=== PATIENT | female | born 1935 | race Caucasian/White ===

== ENCOUNTER 2016-05-22 06:48 | Day surgery (SDC) | payer BC ==
--- NOTE | ~2016-05-22 | EGD ---
EGD REPORT [facility] [address] [address] NAME: SAGRARIO MORENO : 39 STATUS : REG [facility]#: [id number] AGE: 81 ADM/REG DATE : 05/22/16 MR#: [id number] REPORT SERV DATE: 05/22/16 DICTATED BY: SHAHBAZ CHRISTOPHER DATE: 05/22/16 REPORT STATUS : Draft TRANSCRIBED BY: [facility] DATE: 05/22/16 Endoscopy Center Patient Name: Sagarrio Moreno Date of : 1935 Attending MD: SHAHBAZ CHRISTOPHER MD Procedure Date No Time: 05/22/2016 Procedure: Upper GI endoscopy Indications: Abnormal UGI series, Early satiety, Nausea, Weight loss Referring MD: TATA BUCHANAN MD Medicines: as per anesthesia Complications: No immediate complications. Procedure: Pre-Anesthesia Assessment: - ASA Grade Assessment: III - A patient with severe systemic disease. After obtaining informed consent, the endoscope was passed under direct vision. Throughout the procedure, the patient's blood pressure, pulse, and oxygen saturations were monitored continuously. The GIF [id number] was introduced through the mouth, and advanced to the third part of duodenum. The upper GI endoscopy was accomplished without difficulty. The patient tolerated the procedure. Findings: The examined esophagus was normal. The scope was withdrawn. Dilation was performed with a Cohen dilator with no resistance at 44 Fr. A medium-sized hiatus hernia was present. Multiple sessile polyps were found in the gastric body. Biopsies were taken with a cold forceps for histology. The examined duodenum was normal. Impression: - Normal esophagus. Dilated. - Hiatus hernia. - Multiple gastric polyps. Biopsied. - Normal examined duodenum. Recommendation: - Await pathology results. - Follow an antireflux regimen. - Continue present medications. Procedure Code(s): --- Professional --- 41624, Esophagogastroduodenoscopy, flexible, transoral; with biopsy, single or multiple 46262, Dilation of esophagus, by unguided sound or bougie, single or multiple passes EGD REPORT [facility] [address] [place] [address] [address] [address] NAME: SAGRARIO MORENO : 39 STATUS : [place] [facility] [place] [id number] AGE: 81 ADM/REG DATE : 05/22/16 MR#: [id number] REPORT SERV DATE: 05/22/16 DICTATED BY: SHAHBAZ CHRISTOPHER. DATE: 05/22/16 REPORT STATUS : Draft TRANSCRIBED BY: [employer] DATE: 05/22/16 Diagnosis Code(s): --- Professional --- K44.9, Diaphragmatic hernia without obstruction or gangrene K31.7, Polyp of stomach and duodenum R93.3, Abnormal findings on diagnostic imaging of other parts of digestive tract R68.81, Early satiety R11.0, Nausea R63.4, Abnormal weight loss CPT copyright 2013 [employer]. All rights reserved. The codes documented in this report are preliminary and upon coke drawer review may be revised to meet current compliance requirements. SHAHBAZ CHRISTOPHER MD 05/22/2016 8:34 AM This report has been signed electronically. Number of Addenda: 0 Note Initiated On: 05/22/2016 8:15 AM Scope Withdrawal Time 0 hours 0 minutes [address] [place], [place] [address] [place] [address]
[~2016-05-22 06:48] MED LIST: ACET500CAP PO; ASAB PO; BEN25 PO; CALTRA600D PO; CALTRAT600 PO; DSS PO; ENDOCET1 TAB PO; EQUATE ALLERGY PO; FISH OIL1200 MG PO; FLEXI JOIN1 PO; GLUCCHONDR PO; KRILLOIL PO; LEVAQUIN750 MG PO; LEVOTHROID75 MCG PO; LEVOTHYROXIN75 MCG PO; METHOC750B PO; MIRALAXPKT PO; MOBIC15 MG PO; MULTIPLE VIT PO; MYRBETRIQ25 MG PO; NAMENDA5 PO; OS500+D PO; PCET PO; PRESERVISION A1 EAC1 PO; PRESERVISION VIT PO; PREV30 PO; PRILOSEC OTC20 MG PO; PROBIOTIC PO; PROMEGA PO; PROVENTSOL INH; RESTASIS OPH; ROCEPH IM; SEROQUEL25 PO; SYN075 PO; TUMSROLL PO; VITAMIN D1000 UNI1 PO; VITAMIN D31000 UNIT PO; VITC500 PO; VITE PO; VITE1000 PO; ZOCOR20 PO; ZOFRAN4 PO
== END 2016-05-22 23:59 | disposition home health service (06) ==
LOC: DMU 06:48
PROVIDERS: Internal Medicine Gastroenterology
PROC: 0DB68ZX Excision of Stomach, Via Natural or Artificial Opening Endoscopic, Diagnostic (ICD-10-PCS; principal; 2016-05-22 08:00)
PROC: 0D750ZZ Dilation of Esophagus, Open Approach (ICD-10-PCS; 2016-05-22 08:00)
DX: K31.7 Polyp of stomach and duodenum (principal); K44.9 Diaphragmatic hernia without obstruction or gangrene; M19.90 Unspecified osteoarthritis, unspecified site; G47.33 Obstructive sleep apnea (adult) (pediatric); E03.9 Hypothyroidism, unspecified; K21.9 Gastro-esophageal reflux disease without esophagitis; Z99.81 Dependence on supplemental oxygen
CPT/HCPCS: 88305